=== PATIENT | male | born 1980 | race Caucasian/White ===

== ENCOUNTER 2021-03-30 16:41 | Emergency (ER) | payer BC, OTHER ==
--- NOTE | 2021-03-30 17:24 | EDM.PDOC ---
ED HPI GENERAL MEDICAL PROBLEM - General Chief Complaint: Lower Extremity Injury/Pain Stated Complaint: LT LEG COMPLAINT Time Seen by Provider: 03/30/21 17:10 Source of Information: Reports: Patient History Limitations: Reports: No Limitations - History of Present Illness INITIAL COMMENTS - FREE TEXT/NARRATIVE: 41-year-old male presents the emergency department today with complaints of left calf pain. He states that this has been going on for about 10 days. He initially thought that it was a pulled muscle however it has not resolved. He has not taken any Tylenol or ibuprofen for the discomfort. He is a smoker states he smoked a pack a day for about the past 20 years. However, he is fairly active. He states he bikes daily or does some form of exercise. He has not had any recent travel or been sitting in a vehicle for a length of time. He denies any cough or shortness of breath. States he is otherwise fairly healthy. Left Leg Pain Score (Numeric/FACES): 6 - Related Data Allergies Allergy/AdvReac Type Severity Reaction Status Date / Time No Known Allergies Allergy Verified 03/30/21 16:55 Home Meds: Home Meds . [No Known Home Meds] 03/30/21 [History] Past Medical History - Past Health History Medical/Surgical History: Denies Medical/Surgical History Social & Family History - Tobacco Use Tobacco Use Status *Q: Current Every Day Tobacco User Years of Tobacco use: 20 Packs/Tins Daily: 1 Review of Systems - Review of Systems Review Of Systems: Comprehensive ROS is negative, except as noted in HPI. ED EXAM, GENERAL - Physical Exam Exam: See Below Exam Limited By: No Limitations General Appearance: Alert, WD/WN, No Apparent Distress Ears: Normal External Exam, Hearing Grossly Normal Nose: Normal Inspection Throat/Mouth: Normal Inspection, Normal Lips, Normal Voice, No Airway Compromise Head: Atraumatic Neck: Normal Inspection, Supple Respiratory/Chest: No Respiratory Distress, No Accessory Muscle Use Cardiovascular: Normal Peripheral Pulses, Regular Rate, Rhythm, No Edema, No Murmur GI/Abdominal: No Distention (Male) Exam: Deferred Rectal (Males) Exam: Deferred Back Exam: Normal Inspection, Full Range of Motion Extremities: Normal Inspection, Normal Range of Motion, Non-Tender, No Pedal Edema, Normal Capillary Refill Neurological: Alert, Oriented, Normal Cognition Psychiatric: Normal Affect, Normal Mood Skin Exam: Warm, Dry, Intact, Normal Color, No Rash Lymphatic: No Adenopathy Course - Vital Signs Text/Narrative:: As stated, patient with 10-day history of left calf pain. States that the pain is constant. Is not worse or better with rest or activity. I have ordered an ultrasound of the left lower extremity due to the fact that the patient is a fairly heavy smoker to rule out DVT. Last Recorded V/S: Last Vital Signs Temp 98.1 F 03/30/21 16:51 Pulse 62 03/30/21 16:51 Resp 18 03/30/21 16:51 BP 124/77 03/30/21 16:51 Pulse Ox 99 03/30/21 16:51 - Re-Assessments/Exams Free Text/Narrative Re-Assessment/Exam: 03/30/21 18:22 Radiologist impression left lower extremity deep venous ultrasound: 1. Findings suspicious for hematoma within the posterior left calf with measurements of 4.5 x 1.7 x 0.9 cm. Please correlate if this matches clinically. 2. No findings of deep venous thrombosis are seen within the left lower extremity or within the right common femoral vein. Patient will be discharged to home with recommendations that he take a break from strenuous activities for about the next week. He can follow-up with his primary care provider after that if he is still having discomfort noted to his left calf. Departure - Departure Time of Disposition: 18:26 Disposition: Home, Self-Care 01 Condition: Good Clinical Impression: Hematoma of left lower leg - Discharge Information Referrals: PCP,None [Primary Care Provider] - Forms: ED Department Discharge Additional Instructions: You were seen in the emergency department today with complaints of left calf pain. An ultrasound was completed and this did not show any blood clots however it did show that you have a hematoma in your calf. This likely occurred with some kind of strenuous activity. Treatment for this is rest. Recommend that you take a break from any cycling or strenuous physical activities for about the next week. May use an Ronny wrap for comfort. May use ice 30 minutes at a time every 3 hours while awake. Elevate your left leg as much as possible. Follow- up with your primary care provider in about a week if is not better. Sepsis Event Note (ED) - Evaluation Sepsis Screening Result: No Definite Risk - Focused Exam Vital Signs: Vital Signs Temp Pulse Resp BP Pulse Ox 03/30/21 16:51 98.1 F 62 18 124/77 99
--- NOTE | 2021-03-30 18:14 | US ---
Left lower extremity deep venous ultrasound: Duplex and color Doppler evaluation was obtained of the left common femoral, proximal greater saphenous, superficial femoral, popliteal, posterior tibial and peroneal veins. Right common femoral vein was also evaluated. Comparison: No prior venous imaging is available. Findings: There is a fluid-filled collection being seen within the left posterior calf measuring 4.5 x 1.7 x 0.9 cm. Please correlate if patient has any symptoms for this to represent a hematoma. Visualized veins show normal phasic flow, augmentation and compression. Impression: 1. Findings suspicious for hematoma within the posterior left calf with measurements as noted above. Please correlate if this matches clinically. 2. No findings of deep venous thrombosis are seen within the left lower extremity or within the right common femoral vein. Diagnostic code #3
== END 2021-03-30 18:34 | disposition home or self-care (01) ==
LOC: JD.ED 16:41
DX: S80.12XA Contusion of left lower leg, initial encounter (principal); F17.200 Nicotine dependence, unspecified, uncomplicated; X50.9XXA Other and unspecified overexertion or strenuous movements or postures, initial encounter
CPT/HCPCS: 93971-26-LT; 93971-LT; 99283; 99283-25